=== PATIENT | male | born 1990 | race Caucasian/White ===

== ENCOUNTER 2017-10-19 11:01 | Emergency (ER) | payer SELFPAY ==
[2017-10-19 11:05] VITALS: BP 122/66; BMI 21.6
[2017-10-19] MEDS ORDERED: NS 1000 ML 1,000 ML ONE (12:29)
--- NOTE | 2017-10-19 12:29 | DR.GENAD ---
HPI - PCP Primary Care Physician: NFD - Complaint/Symptoms Chief Complaint Doctors Comments: Patient presents with influenza like symptoms for 4-5 days. Chief Complaint:: PATIENT STATED HE HAS BEEN FEELING BAD FOR THE LAST 4-5 DAYS. COUGHING, TROUBLE TALKING, NOT ABLE TO EAT. - Source History Provided: Patient - Mode of Arrival Mode of Arrival: Ambulatory - Timing Onset of Chief Complaint: 10/14/17 PMH - PMH Past Medical History: No Past Surgical History: No - Family History History of Family Medical Conditions: No - Social History Does patient currently use any type of tobacco product: Yes Have you used tobacco products in the last 12 months: Yes Type of Tobacco Use: Cigarettes Alcohol Use: Occasionally Do you use any recreational Drugs:: Yes (THC) Lives With: Family Lives Where: Home - infectious screening In the last 2 months have you had wt loss of >10#?: NO Have you had fever, night sweats or hemotysis?: No Have you traveled outside the country in the last 6 months?: No Isolation: Standard ROS - Review of Systems Eyes: No Symptoms Reported ENTM: No Symptoms Reported Respiratoy: No Symptoms Reported Cardiovascular: No Symptoms Reported Gastrointestinal/Abdominal: No Symptoms Reported Genitourinary: No Symptoms Reported Neurological: No Symptoms Reported Musculoskeletal: No Symptoms Reported Integumentary: No Symptoms Reported Hematologic/Lymphatic: No Symptoms Reported Endocrine: No Symptoms Reported Psychiatric: No Symptoms Reported All Other Systems: Reviewed and Negative PE - Vital Signs Vitals: Temperature 98.1 F Pulse Rate 116 Respiratory Rate 20 Blood Pressure 122/66 O2 Sat by Pulse Oximetry 100 - General Limitations: No Limitations General Appearance: Alert, In No Apparent Distress - Head Head Exam: Normal Inspection, Atraumatic - Eyes Eye exam: Normal Appearance, PERRL, EOMI - ENT ENT Exam: Normal Exam TM/Canal Exam: Bilateral Normal Nose Exam: Normal Nose Exam Mouth Exam: Normal Inspection Throat Exam: Normal Inspection - Neck Neck Exam: Normal Inspection - Chest Chest Inspection: Normal Inspection - Respiratory Respiratory Exam: Normal Lung Sounds Bilat Respiratory Exam: Bilateral Clear to Auscultation - Cardiovascular Cardiovascular Exam: Regular Rate, Normal Rhythm - Abdominal Exam Abdominal Exam: Normal Inspection, Normal Bowel Sounds Abdominal Tenderness: negative: RUQ, RLQ, LUQ, LLQ, Epigastrium, Suprapubic, Diffuse, Mild, Moderate, Severe, Other - Extremities Extremities Exam: Normal Inspection, Full ROM - Back Back Exam: Normal Inspection, Full ROM - Neurologic Neurological Exam: Alert, Oriented X3, CN II-XII Intact - Psychiatric Psychiatric Exam: Normal Affect - Skin Skin Exam: Warm, Dry, Intact Course - Reevaluation 1st: Improved ROR - Labs Reviewed Laboratory Results Reviewed?: Yes (strep and influenza are negative) Result Diagrams: 10/19/17 12:35 10/19/17 12:35 Laboratory: WBC 13.7 X10^3/uL (3.6-10.0) H 10/19/17 12:35 RBC 3.59 X10^6/uL (4.7-6.0) L 10/19/17 12:35 Hgb 12.5 g/dL (13.5-18.0) L 10/19/17 12:35 Hct 36.1 % (42.0-54.0) L 10/19/17 12:35 MCV 100.3 fL (80.0-100.0) H 10/19/17 12:35 MCH 34.9 pg (27.0-34.0) H 10/19/17 12:35 MCHC 34.8 g/dL (33.0-35.0) 10/19/17 12:35 RDW 12.7 % (11.6-16.5) 10/19/17 12:35 Plt Count 313 X10^3/uL (150.0-450.0) 10/19/17 12:35 MPV 9.0 fL (7.4-11.0) 10/19/17 12:35 Neut % 77.6 % (42.0-75.0) H 10/19/17 12:35 Lymph % 12.4 % (21.0-51.0) L 10/19/17 12:35 [place] % 9.0 % (0.0-13.0) 10/19/17 12:35 Eos % 0.7 % (0.9-2.9) L 10/19/17 12:35 Baso % 0.3 % (0.2-1.0) 10/19/17 12:35 Neut # 10.6 x10^3/uL (2.2-4.8) H 10/19/17 12:35 Lymph # 1.7 X10^3/uL (1.3-2.9) 10/19/17 12:35 [place] # 1.2 x10^3/uL (0.3-0.8) H 10/19/17 12:35 Eos # 0.1 x10^3/uL (0.0-0.2) 10/19/17 12:35 Baso # 0.0 X10^3/uL (0.0-0.1) 10/19/17 12:35 Absolute Nucleated RBC 0.0 /100WBC 10/19/17 12:35 Sodium 135 mmol/L (136-145) L 10/19/17 12:35 Corrected Sodium TNP 10/19/17 12:35 Potassium 4.2 mmol/L (3.5-5.1) 10/19/17 12:35 Chloride 98 mmol/L (98-107) 10/19/17 12:35 Carbon Dioxide 29.0 mmol/L (21-32) 10/19/17 12:35 BUN 5 mg/dL (7-18) L 10/19/17 12:35 Creatinine 0.75 mg/dL (0.70-1.30) 10/19/17 12:35 Est GFR (MDRD) Af Amer > 60 (>60) 10/19/17 12:35 Est GFR (MDRD) Non-Af > 60 (>60) 10/19/17 12:35 Glucose 89 mg/dL (65-99) 10/19/17 12:35 Calcium 8.7 mg/dL (8.5-10.1) 10/19/17 12:35 Corrected Calcium 9.5 mg/dL (8.5-10.1) 10/19/17 12:35 Total Bilirubin 0.50 mg/dL (0.2-1.0) 10/19/17 12:35 AST 23 Units/L (15-37) 10/19/17 12:35 ALT 23 Units/L (12-78) 10/19/17 12:35 Alkaline Phosphatase 115 Units/L (46-116) 10/19/17 12:35 Total Protein 8.5 g/dL (6.4-8.2) H 10/19/17 12:35 Albumin 3.0 g/dL (3.4-5.0) L 10/19/17 12:35 Globulin 5.5 g/dL (2.5-4.5) H 10/19/17 12:35 Albumin/Globulin Ratio 0.5 Ratio (1.1-2.1) L 10/19/17 12:35 Influenza Type A (PCR) Negative (NEGATIVE) 10/19/17 11:57 Influenza Type B (PCR) Negative (NEGATIVE) 10/19/17 11:57 S. pyogenes (TEM-PCR) Not detected (NOT DETECT) 10/19/17 12:35 - Diagnosis Discharge Problem: Upper respiratory tract infection Qualifiers: URI type: unspecified viral URI Qualified Code(s): J06.9 - Acute upper respiratory infection, unspecified - Discharge Plan Condition: Stable - Follow ups/Referrals Follow ups/Referrals: NFD,None [Primary Care Provider] - 3 days - Instructions
[2017-10-19] MEDS ORDERED: TORADOL 30 MG VIAL ONE (12:30)
[2017-10-19] MEDS ORDERED: NS 1000 ML 1,000 ML IV ONE (12:30)
[2017-10-19] MEDS ORDERED: TORADOL 30 MG VIAL IM ONE (12:30)
[2017-10-19] MEDS ORDERED: TORADOL 30 MG VIAL IVP ONE (12:40)
[2017-10-19 13:01] LABS: BASOPHILS % (AUTO) 0.3 % (0.2-1.0); EOSINOPHILS # (AUTO) 0.1 x10^3/uL (0.0-0.2); EOSINOPHILS % (AUTO) 0.7 % (0.9-2.9); HEMATOCRIT 36.1 % (42.0-54.0); HEMOGLOBIN 12.5 g/dL (13.5-18.0); LYMPHOCYTES # (AUTO) 1.7 X10^3/uL (1.3-2.9); LYMPHOCYTES % (AUTO) 12.4 % (21.0-51.0); MEAN CORPUSCULAR HEMOGLOBIN 34.9 pg (27.0-34.0); MEAN CORPUSCULAR HGB CONC 34.8 g/dL (33.0-35.0); MEAN CORPUSCULAR VOLUME 100.3 fL (80.0-100.0); MONOCYTES # (AUTO) 1.2 x10^3/uL (0.3-0.8); NEUTROPHILS # (AUTO) 10.6 x10^3/uL (2.2-4.8); NEUTROPHILS % (AUTO) 77.6 % (42.0-75.0); PLATELET COUNT 313 X10^3/uL (150.0-450.0); RED BLOOD COUNT 3.59 X10^6/uL (4.7-6.0); RED CELL DISTRIBUTION WIDTH 12.7 % (11.6-16.5); WHITE BLOOD COUNT 13.7 X10^3/uL (3.6-10.0)
[2017-10-19 13:10] LABS: ALANINE AMINOTRANSFERASE 23 Units/L (12-78); ALKALINE PHOSPHATASE 115 Units/L (46-116); ASPARTATE AMINO TRANSFERASE 23 Units/L (15-37); BLOOD UREA NITROGEN 5 mg/dL (7-18); CALCIUM 8.7 mg/dL (8.5-10.1); CHLORIDE 98 mmol/L (98-107); COR CA(FOR HYPOALB) 9.5 mg/dL (8.5-10.1); CREATININE 0.75 mg/dL (0.70-1.30); SODIUM 135 mmol/L (136-145); TOTAL PROTEIN 8.5 g/dL (6.4-8.2); eGFR BLACK RACES > 60 (>60); eGFR NON BLACK RACES > 60 (>60)
== END 2017-10-19 13:49 | disposition home or self-care (01) ==
LOC: ER 11:23
DX: J06.9 Acute upper respiratory infection, unspecified (principal)
CPT/HCPCS: 36415; 80053; 85025; 87502; 87651; 96365; 96374; 99283; A4222; J1885